=== PATIENT | female | born 1950 | race Caucasian/White ===

== ENCOUNTER 2016-05-23 09:50 | Outpatient (CLI) | payer OTHER | END 2016-05-23 09:51 | disposition home or self-care (01) | DX: E11.9 Type 2 diabetes mellitus without complications (principal) ==

== ENCOUNTER 2016-07-20 11:19 | Outpatient (CLI) | payer OTHER | END 2016-07-20 11:20 | disposition home or self-care (01) | DX: M19.072 Primary osteoarthritis, left ankle and foot (principal) ==

== ENCOUNTER 2016-08-22 09:09 | Outpatient (CLI) | payer OTHER | END 2016-08-22 09:10 | DX: E11.9 Type 2 diabetes mellitus without complications (principal) ==

== ENCOUNTER 2016-09-13 10:18 | Outpatient (CLI) | payer OTHER | END 2016-09-13 10:19 | disposition home or self-care (01) | DX: E87.6 Hypokalemia (principal) ==

== ENCOUNTER 2016-11-05 12:52 | Outpatient (CLI) | payer OTHER ==
--- NOTE | 2016-11-05 15:25 | Ultrasound Report ---
EXAM: LEFT LOWER EXTREMITY VENOUS ULTRASOUND EXAM DATE: 11/05/2016 12:56 PM. CLINICAL HISTORY: Left leg edema COMPARISON: None. TECHNIQUE: Real-time sonographic vascular imaging was performed by the coordinator of evaluation through the lower extremity utilizing both color-flow and Doppler spectral analysis. Multiple clearance representative static magda ges were saved for review. FINDINGS: Common Femoral Vein (CFV): Normal. CFV-GSV Junction: Normal. Profunda Femoral Vein (PFV): Normal. Femoral Vein (FV) Prox: Normal. Femoral Vein (FV) Mid: Normal. Femoral Vein (FV) Dist: Normal. Popliteal Vein: Normal. Posterior Tibial Veins: Normal. Peroneal Veins: Normal. IMPRESSION: No evidence for deep venous thrombosis. [facility] Referring Provider Line: [phone] SITE ID: [id number]
== END 2016-11-05 12:53 | disposition home or self-care (01) ==
LOC: DI 12:52
PROVIDERS: ATTEND Physician Assistant Medical
DX: R60.0 Localized edema (principal)

== ENCOUNTER 2016-11-21 11:30 | Outpatient (CLI) | payer OTHER ==
--- NOTE | 2016-11-21 16:28 | XRAY Report ---
TWO-VIEW CHEST: 11/21/2016 CLINICAL INDICATION: Cough. COMPARISON: 02/03/2015 FINDINGS: Frontal and lateral views of the chest demonstrate a normal cardiac silhouette. The lungs are clear. No effusion or pneumothorax is present. IMPRESSION: NORMAL CHEST. JOB #: [id number] EXT JOB #:[id number]
== END 2016-11-21 11:31 | disposition home or self-care (01) ==
LOC: DI.N 11:30
PROVIDERS: ATTEND Otolaryngology Otolaryngology/Facial Plastic Surgery
DX: R05 Cough (principal)
CPT/HCPCS: 71020

== ENCOUNTER 2016-11-22 08:08 | Outpatient (CLI) | payer OTHER | END 2016-11-22 08:09 | disposition home or self-care (01) | DX: E11.9 Type 2 diabetes mellitus without complications (principal) ==

== ENCOUNTER 2016-12-01 10:02 | Outpatient (CLI) | payer OTHER ==
--- NOTE | 2016-12-02 17:29 | Mammography Report ---
DIGITAL SCREENING MAMMOGRAM: 12/01/2016 CLINICAL INDICATION: A 66-year-old with family history of breast cancer, for screening. COMPARISON: 05/2015, 04/2014, 03/2013, 12/2011, 10/2010, 09/2009. TECHNIQUE: Routine CC and MLO projections were obtained of the breasts. FINDINGS: The breasts demonstrate scattered fibroglandular densities bilaterally. Punctate, typicall y benign calcifications are present. No suspicious masses, clustered microcalcifications, or regions of architectural distortion are identified. IMPRESSION: BENIGN FINDINGS. RECOMMENDATION: ROUTINE ANNUAL SCREENING UNLESS OTHERWISE CLINICALLY INDICATED. BIRADS CATEGORY 2-BENIGN FINDINGS. STANDARD QUALIFYING STATEMENTS 1. This examination was reviewed with the aid of Computer-Aided Detection (CAD). 2. A negative or benign imaging report should not delay biopsy if clinically suspicious findings are present. Consider surgical consultation if warranted. More than 5% of cancers are not identified by i maging. 3. Dense breasts may obscure an underlying neoplasm. JOB #: [id number] EXT JOB #:[id number]
== END 2016-12-01 10:03 | disposition home or self-care (01) ==
LOC: DI.N 10:02
PROVIDERS: ATTEND Physician Assistant Medical
DX: Z12.31 Encounter for screening mammogram for malignant neoplasm of breast (principal); Z80.3 Family history of malignant neoplasm of breast
CPT/HCPCS: 77067

== ENCOUNTER 2017-02-02 13:02 | Outpatient (CLI) | payer OTHER ==
--- NOTE | 2017-02-02 17:35 | Ultrasound Report ---
THYROID ULTRASOUND: 02/02/2017 HISTORY: Followup abnormal thyroid ultrasound of 01/11/2016. TECHNIQUE: Real-time scanning by the remote broadcast technician with saved static images reviewed. COMPARISON: 01/11/2016 FINDINGS: RIGHT LOBE: 3.6 x 1.5 x 1.7 cm, volume 4.9 mL. In the right upper pole, two small cysts are present, each in the range of 3-4 mm. In the mid pole, two solid nodules are seen, the largest 1.9 x 1 x 1.7 cm and the smaller 7 x 4 x 6 mm. Previously, the dominant right-sided nodule measured 1.5 x 1.4 x 0.9 cm. There is an additional lower pole cyst measuring approximately 3 mm in diameter. LEFT LOBE: 4.3 x 1.3 x 1.2 cm, volume 3.6 mL. Several 5mm or less cysts are seen involving the upper and lower poles. In addition, at the inferior pole is a small echogenic solid lesion, 8 x 3 x 5 mm. THYROID ISTHMUS: 4 mm, unremarkable echotexture. Allowing for technical differences, the appearance of the thyroid has not changed appreciably compared with the prior ultrasound. IMPRESSION: STABLE THYROID ULTRASOUND COMPARED WITH 01/11/2016, REDEMONSTRATING A MULTINODULAR GLAND WITH THE DOMINANT NODULE RIGHT MID THYROID. JOB #: [id number] EXT JOB #: [id number] NORBERTO
== END 2017-02-02 13:03 | disposition home or self-care (01) ==
LOC: DI 13:02
PROVIDERS: ATTEND Otolaryngology Otolaryngology/Facial Plastic Surgery
DX: E04.2 Nontoxic multinodular goiter (principal)
CPT/HCPCS: 76536

== ENCOUNTER 2017-02-24 09:12 | Outpatient (CLI) | payer OTHER ==
[2017-02-24 14:00] LABS: ALBUMIN/GLOBULIN RATIO 1.2 (1.0-2.2); BILIRUBIN,TOTAL 0.6 mg/dL (0.2-1.0); BUN - BLOOD UREA NITROGEN 15 mg/dL (6-20); CALCIUM 9.1 mg/dL (8.5-10.3); CARBON DIOXIDE - CO2 25 mmol/L (21-32); CHLORIDE 102 mmol/L (101-111); CHOL/HDL RATIO 3.4 (<4.4); CHOLESTEROL 166 mg/dL; CREATININE 1.1 mg/dL (0.4-1.0); GFR - MDRD 50 (>89); GLUCOSE 170 mg/dL (70-100); HDL CHOLESTEROL 49 mg/dL; LDL/HDL RATIO 1.5 (<4.4); SODIUM 139 mmol/L (135-145); TOTAL PROTEIN 7.2 g/dL (6.7-8.2); TRIGLYCERIDES 208 mg/dL; VLDL CHOLESTEROL 42 mg/dL
[2017-02-24 14:44] LABS: HEMOGLOBIN A1C 0.86 g/dL
== END 2017-02-24 09:13 | disposition home or self-care (01) ==
LOC: LAB.WCP 09:12
PROVIDERS: ATTEND Physician Assistant Medical
DX: E11.9 Type 2 diabetes mellitus without complications (principal)
CPT/HCPCS: 36415; 80053; 80061; 83036

== ENCOUNTER 2017-03-14 10:49 | Outpatient (CLI) | payer OTHER | END 2017-03-14 10:50 | disposition home or self-care (01) | LOC: SC 10:49 | PROVIDERS: ATTEND Nurse Practitioner Family | DX: G47.33 Obstructive sleep apnea (adult) (pediatric) (principal); G47.23 Circadian rhythm sleep disorder, irregular sleep wake type | CPT/HCPCS: 99212; 99214 ==

== ENCOUNTER 2017-07-25 08:04 | Outpatient (CLI) | payer MEDICARE, OTHER ==
[2017-07-25 12:38] LABS: ALBUMIN 3.8 g/dL (3.2-5.5); ALBUMIN/GLOBULIN RATIO 1.2 (1.0-2.2); BILIRUBIN,TOTAL 0.4 mg/dL (0.2-1.0); CALCIUM 8.9 mg/dL (8.5-10.3); CREATININE 0.9 mg/dL (0.4-1.0); TOTAL PROTEIN 7.1 g/dL (6.7-8.2)
[2017-07-25 13:10] LABS: HB2 TOTAL 13.1 g/dL; HEMOGLOBIN A1C 0.96 g/dL; HEMOGLOBIN A1C % 8.9 % (4.6-6.2)
== END 2017-07-25 08:05 | disposition home or self-care (01) ==
LOC: LAB.WCP 08:04
PROVIDERS: ATTEND Physician Assistant Medical
DX: E11.9 Type 2 diabetes mellitus without complications (principal)
CPT/HCPCS: 36415; 80053; 83036

== ENCOUNTER 2017-07-31 09:48 | Outpatient (CLI) | payer MEDICARE, OTHER | END 2017-07-31 09:49 | disposition home or self-care (01) | LOC: SC 09:48 | PROVIDERS: ATTEND Nurse Practitioner Family | DX: G47.33 Obstructive sleep apnea (adult) (pediatric) (principal); G47.23 Circadian rhythm sleep disorder, irregular sleep wake type | CPT/HCPCS: 99214; G0463; 99212 ==

== ENCOUNTER 2017-08-02 11:33 | Outpatient (CLI) | payer MEDICARE, OTHER | END 2017-08-02 11:34 | LOC: LAB.WCP 11:33 | PROVIDERS: ATTEND Physician Assistant Medical | DX: J11.89 Influenza due to unidentified influenza virus with other manifestations (principal) | CPT/HCPCS: 87275; 87276 ==

== ENCOUNTER 2017-10-02 10:21 | Outpatient (CLI) | payer MEDICARE, OTHER | END 2017-10-02 10:22 | disposition home or self-care (01) | LOC: SC 10:21 | PROVIDERS: ATTEND Nurse Practitioner Family | DX: G47.33 Obstructive sleep apnea (adult) (pediatric) (principal); G47.20 Circadian rhythm sleep disorder, unspecified type | CPT/HCPCS: 99214; G0463; 99212 ==

== ENCOUNTER 2017-10-27 07:48 | Outpatient (CLI) | payer MEDICARE, OTHER ==
[2017-10-27 13:04] LABS: BUN - BLOOD UREA NITROGEN 16 mg/dL (6-20); CALCIUM 8.9 mg/dL (8.5-10.3); CARBON DIOXIDE - CO2 26 mmol/L (21-32); CHLORIDE 102 mmol/L (101-111); CHOL/HDL RATIO 3.2 (<4.4); CHOLESTEROL 140 mg/dL; GFR - MDRD 56 (>89); GLUCOSE 174 mg/dL (70-100); HDL CHOLESTEROL 44 mg/dL; LDL CHOLESTEROL,CALCULATED 60 mg/dL; LDL/HDL RATIO 1.4 (<4.4); SODIUM 138 mmol/L (135-145); VLDL CHOLESTEROL 36 mg/dL
[2017-10-27 13:37] LABS: HEMOGLOBIN A1C 0.77 g/dL; HEMOGLOBIN A1C % 7.2 % (4.6-6.2)
== END 2017-10-27 07:49 | disposition home or self-care (01) ==
LOC: LAB.WCP 07:48
PROVIDERS: ATTEND Physician Assistant Medical
DX: E11.9 Type 2 diabetes mellitus without complications (principal)
CPT/HCPCS: 36415; 80048; 80061; 83036; 83721

== ENCOUNTER 2017-11-02 13:25 | Outpatient (CLI) | payer MEDICARE, OTHER ==
[2017-11-02] MEDS ORDERED: IOPAMIDOL-300 100 ML VIAL ONE (13:57)
[2017-11-02] MEDS ORDERED: IOPAMIDOL-300 100 ML VIAL IVP ONE (14:27)
--- NOTE | 2017-11-02 14:48 | CT Report ---
Procedure Date: 11/02/2017 Accession Number: [id number] / [id number] Procedure: CT - Chest Angio (PE) CPT Code: FULL RESULT: EXAM: CT ANGIOGRAM CHEST EXAM DATE: 11/02/2017 02:14 PM. CLINICAL HISTORY: HYPOXIA, TACHYCARDIA, AND RECENT TRAVEL. COMPARISON: 08/07/2014. TECHNIQUE: Routine helical imaging was performed through the chest in the pulmonary arterial phase. IV Contrast: ISOVUE 300 80mL. Reconstructions: Coronal 3-D MIP reconstructions.Sagittal and coronal. In accordance with CT protocol optimization, one or more of the following dose reduction techniques were utilized for this exam: automated exposure control, adjustment of mA and/or KV based on patient size, or use of iterative reconstructive technique. FINDINGS: Pulmonary Arteries: Diagnostic quality: Adequate through the segmental arteries. No evidence for acute or chronic pulmonary emboli. Main pulmonary artery is normal in size. Lungs/Pleura: No consolidation, nodules, or edema. No effusions or pneumothorax. Mediastinum: Normal. No cardiac enlargement or adenopathy. Thoracic Aorta: Unremarkable. Upper Abdomen: There is a left adrenal nodule which is of indeterminant density and measures 1.8 x 1.7 cm in size, unchanged. Other: None. IMPRESSION: 1. No significant abnormality in the chest. 2. Indeterminate density small left adrenal nodule unchanged since 2014. Most likely benign adenoma. [facility]
== END 2017-11-02 13:26 | disposition home or self-care (01) ==
LOC: DI 13:25
PROVIDERS: ATTEND Physician Assistant Medical
DX: R09.02 Hypoxemia (principal); E27.8 Other specified disorders of adrenal gland
CPT/HCPCS: 71275; Q9967

== ENCOUNTER 2017-12-14 10:58 | Outpatient (CLI) | payer MEDICARE, OTHER ==
--- NOTE | 2017-12-15 11:18 | Mammography Report ---
Procedure Date: 12/14/2017 Accession Number: [id number] / [id number] Procedure: [facility] - Screening Mammo Dig Bilat CPT Code: FULL RESULT: EXAM: Screening Mammo Dig Bilat DATE: 12/14/2017 11:16 AM CLINICAL HISTORY: 67-year-old female with family history of breast cancer in the mother at age 70. TECHNIQUE: Bilateral CC and MLO views were obtained. COMPARISON: 12/01/2016, 06/09/2015, 04/30/2014, 04/06/2013. FINDINGS: The breasts demonstrate scattered fibroglandular densities bilaterally. There are coarse typically benign calcifications. No suspicious masses, clustered microcalcifications, or regions of architectural distortion are identified. IMPRESSION: Benign findings RECOMMENDATION: Routine annual screening unless otherwise clinically indicated. BIRADS CATEGORY 2: Benign findings STANDARD QUALIFYING STATEMENTS: 1. This examination was reviewed with the aid of Computer-Aided Detection (CAD). 2. A negative or benign imaging report should not delay biopsy if clinically suspicious findings are present. Consider surgical consultation if warrented. More than 5% of cancers are not identified by imaging. 3. Dense breasts may obscure an underlying neoplasm.
== END 2017-12-14 10:59 | disposition home or self-care (01) ==
LOC: DI.N 10:58
PROVIDERS: ATTEND Physician Assistant Medical
DX: Z12.31 Encounter for screening mammogram for malignant neoplasm of breast (principal); Z80.3 Family history of malignant neoplasm of breast
CPT/HCPCS: 77067

== ENCOUNTER 2018-02-02 09:41 | Outpatient (CLI) | payer MEDICARE, OTHER ==
[2018-02-02 12:52] LABS: CALCIUM 9.1 mg/dL (8.5-10.3); CREATININE 0.8 mg/dL (0.4-1.0)
[2018-02-02 13:35] LABS: HEMOGLOBIN A1C 0.87 g/dL; HEMOGLOBIN A1C % 8.3 % (4.6-6.2)
== END 2018-02-02 09:42 | disposition home or self-care (01) ==
LOC: LAB.WCP 09:41
PROVIDERS: ATTEND Physician Assistant Medical
DX: E11.9 Type 2 diabetes mellitus without complications (principal)
CPT/HCPCS: 36415; 80048; 83036

== ENCOUNTER 2018-05-03 07:38 | Outpatient (CLI) | payer MEDICARE, OTHER ==
[2018-05-03 13:54] LABS: ALBUMIN 3.8 g/dL (3.2-5.5); ALBUMIN/GLOBULIN RATIO 1.1 (1.0-2.2); ALKALINE PHOSPHATASE 56 IU/L (42-121); ALT ALANINE AMINOTRANSFERASE 75 IU/L (10-60); AST ASPARTATE AMINOTRANSFERASE 67 IU/L (10-42); BILIRUBIN,TOTAL 0.5 mg/dL (0.2-1.0); BUN - BLOOD UREA NITROGEN 15 mg/dL (6-20); CALCIUM 9.1 mg/dL (8.5-10.3); CARBON DIOXIDE - CO2 27 mmol/L (21-32); CHLORIDE 104 mmol/L (101-111); CHOL/HDL RATIO 3.6 (<4.4); CHOLESTEROL 139 mg/dL; GFR - MDRD 55 (>89); GLUCOSE 127 mg/dL (70-100); HDL CHOLESTEROL 39 mg/dL; LDL CHOLESTEROL,CALCULATED 63 mg/dL; LDL/HDL RATIO 1.6 (<4.4); SODIUM 142 mmol/L (135-145); TOTAL PROTEIN 7.2 g/dL (6.7-8.2); VLDL CHOLESTEROL 37 mg/dL
[2018-05-03 16:45] LABS: HB2 TOTAL 13.1 g/dL; HEMOGLOBIN A1C 0.73 g/dL; HEMOGLOBIN A1C % 7.3 % (4.6-6.2)
== END 2018-05-03 23:59 | disposition home or self-care (01) ==
LOC: LAB.WCP 07:38
PROVIDERS: ATTEND Physician Assistant Medical
DX: E11.9 Type 2 diabetes mellitus without complications (principal)
CPT/HCPCS: 36415; 80053; 80061; 83036; 83721

== ENCOUNTER 2018-05-17 08:44 | Outpatient (CLI) | payer MEDICARE, OTHER ==
--- NOTE | 2018-05-17 09:30 | XRAY Report ---
Reason: KNEE PAIN,LEFT Procedure Date: 05/17/2018 Accession Number: [id number] / [id number] Procedure: XR - Knee 3 View LT CPT Code: FULL RESULT: EXAM: LEFT KNEE RADIOGRAPHY EXAM DATE: 05/17/2018 08:54 AM. CLINICAL HISTORY: KNEE Pain, left. COMPARISON: None. TECHNIQUE: 3 views. FINDINGS: Bones: No fractures or bone lesions. There is a superior patellar enthesophyte. Joints: There are mild to moderate tricompartmental degenerative changes. There is mild lateral patellar tilt and patellar subluxation. Soft Tissues: There is a small effusion. IMPRESSION: Mild to moderate tricompartmental osteoarthritis [facility]
== END 2018-05-17 08:45 | disposition home or self-care (01) ==
LOC: DI 08:44
PROVIDERS: ATTEND Physician Assistant Medical
DX: M17.12 Unilateral primary osteoarthritis, left knee (principal)

== ENCOUNTER 2018-08-08 10:45 | Outpatient (CLI) | payer MEDICARE, OTHER ==
[2018-08-08 19:42] LABS: CALCIUM 9.4 mg/dL (8.5-10.3)
[2018-08-08 19:54] LABS: HB2 TOTAL 14.5 g/dL; HEMOGLOBIN A1C 0.77 g/dL
== END 2018-08-08 10:46 | disposition home or self-care (01) ==
LOC: LAB.WCP 10:45
PROVIDERS: ATTEND Physician Assistant Medical
DX: E11.9 Type 2 diabetes mellitus without complications (principal)
CPT/HCPCS: 36415; 80048; 83036

== ENCOUNTER 2018-11-05 10:55 | Outpatient (CLI) | payer MEDICARE, OTHER ==
[2018-11-05 12:39] LABS: ALBUMIN 3.8 g/dL (3.2-5.5); ALBUMIN/GLOBULIN RATIO 1.1 (1.0-2.2); ALKALINE PHOSPHATASE 57 IU/L (42-121); ALT ALANINE AMINOTRANSFERASE 48 IU/L (10-60); AST ASPARTATE AMINOTRANSFERASE 47 IU/L (10-42); BILIRUBIN,TOTAL 0.6 mg/dL (0.2-1.0); BUN - BLOOD UREA NITROGEN 14 mg/dL (6-20); CALCIUM 9.1 mg/dL (8.5-10.3); CARBON DIOXIDE - CO2 23 mmol/L (21-32); CHLORIDE 107 mmol/L (101-111); CHOL/HDL RATIO 4.1 (<4.4); CHOLESTEROL 158 mg/dL; CREATININE 0.9 mg/dL (0.4-1.0); GFR - MDRD 63 (>89); GLUCOSE 148 mg/dL (70-100); HDL CHOLESTEROL 39 mg/dL; LDL CHOLESTEROL,CALCULATED 89 mg/dL; LDL/HDL RATIO 2.3 (<4.4); SODIUM 142 mmol/L (135-145); TOTAL PROTEIN 7.3 g/dL (6.7-8.2); VLDL CHOLESTEROL 30 mg/dL
[2018-11-05 12:54] LABS: HB2 TOTAL 12.8 g/dL; HEMOGLOBIN A1C 0.67 g/dL; HEMOGLOBIN A1C % 6.9 % (4.6-6.2)
== END 2018-11-05 10:56 | disposition home or self-care (01) ==
LOC: LAB.WCP 10:55
PROVIDERS: ATTEND Physician Assistant Medical
DX: E11.9 Type 2 diabetes mellitus without complications (principal)
CPT/HCPCS: 36415; 80053; 80061; 83036; 83721

== ENCOUNTER 2018-12-24 11:06 | Outpatient (CLI) | payer MEDICARE, OTHER ==
--- NOTE | 2018-12-25 16:53 | Mammography Report ---
Reason: SCREENING MAMMO Procedure Date: 12/24/2018 Accession Number: [id number] / [id number] Procedure: [facility] - Screening Mammo w/Sylvester CPT Code: FULL RESULT: EXAM: Screening Mammo w/Sylvester DATE: 12/24/2018 11:43 AM CLINICAL HISTORY: Screening encounter. Family history of breast cancer in the mother at the age of 70. TECHNIQUE: (B) - Bilateral CC and MLO views were obtained. COMPARISON: 12/14/2017 through 04/30/2014. PARENCHYMAL PATTERN: (A) - The breast(s) demonstrate(s) scattered fibroglandular densities. FINDINGS: There are no suspicious masses, calcifications, or areas of distortion. IMPRESSION: Negative examination. BI-RADS category 1. RECOMMENDATION: (ANNUAL) - Recommend routine annual screening mammography. BI-RADS CATEGORY: (1) - Negative. STANDARD QUALIFYING STATEMENTS: 1. This examination was not reviewed with the aid of Computer-Aided Detection (CAD). 2. A negative or benign imaging report should not preclude biopsy if clinically suspicious findings are present. 3. Dense breasts may obscure an underlying neoplasm. 4. This examination was reviewed with the aid of 3D breast imaging (tomosynthesis).
== END 2018-12-24 11:07 | disposition home or self-care (01) ==
LOC: DI 11:06
PROVIDERS: ATTEND Physician Assistant Medical
DX: Z12.31 Encounter for screening mammogram for malignant neoplasm of breast (principal); Z80.3 Family history of malignant neoplasm of breast
CPT/HCPCS: 77063; 77067

== ENCOUNTER 2019-02-12 08:00 | Outpatient (CLI) | payer MEDICARE, OTHER ==
[2019-02-12 12:07] LABS: CALCIUM 9.1 mg/dL (8.5-10.3)
[2019-02-12 13:41] LABS: HB2 TOTAL 12.8 g/dL; HEMOGLOBIN A1C 0.64 g/dL; HEMOGLOBIN A1C % 6.7 % (4.6-6.2)
== END 2019-02-12 08:01 | disposition home or self-care (01) ==
LOC: LAB.WCP 08:00
PROVIDERS: ATTEND Physician Assistant Medical
DX: E11.9 Type 2 diabetes mellitus without complications (principal)
CPT/HCPCS: 36415; 80048; 83036